=== PATIENT | male | born 1995 | race Two or more races ===

== ENCOUNTER 2018-06-28 16:24 | Emergency (ER) | payer OTHER ==
--- NOTE | 2018-06-28 16:30 | EDPHY ---
H & P Time Seen by Provider: 06/28/18 16:29 HPI/ROS: CHIEF COMPLAINT: [ ] HISTORY OF PRESENT ILLNESS: [Need 4: Location, Duration, Severity, Quality, Context, Timing Modifying Factors, Associated S&S] REVIEW OF SYSTEMS: A comprehensive 10 point review of systems is otherwise negative aside from elements mentioned in the history of present illness. Source: Patient Exam Limitations: No limitations - Physical Exam Exam: General Appearance: [Alert, no distress] Eyes: [Pupils equal and round no pallor or injection] ENT, Mouth: [Mucous membranes moist] Respiratory: [There are no retractions, lungs are clear to auscultation] Cardiovascular: [Regular rate and rhythm] Gastrointestinal: [Abdomen is soft and nontender, no masses, bowel sounds normal] Neurological: [A&O, normal motor function, normal sensory exam, normal cranial nerves] Skin: [Warm and dry, no rashes] Musculoskeletal: [Neck is supple nontender] Extremities: [symmetrical, full range of motion] Psychiatric: [Patient is oriented X 3, there is no agitation] Departure - Departure Referrals: NONE *PRIMARY CARE P,. [Primary Care Provider] - As per Instructions
[2018-06-28 16:58] VITALS: BP 136/87
--- NOTE | 2018-06-28 17:26 | EDPHY ---
ED Progress Note Narrative: The patient decided to leave without being seen. He was not evaluated by the physician. He refused a medical screening exam. Patient was a competent decision maker.
== END 2018-06-28 17:28 | disposition left against medical advice (07) ==
DX: R07.81 Pleurodynia (principal)
CPT/HCPCS: 82435-PO; 82565-PO; 82947-PO; 84132-PO; 84295-PO; 84520-PO; 85014-PO

== ENCOUNTER 2018-06-29 17:29 | Emergency (ER) | payer OTHER ==
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
[2018-06-29] MEDS ORDERED: IOPAMIDOL (ISOVUE 370) 100 ML BTL IV ONE (19:03)
[2018-06-29 19:53] VITALS: BP 129/87
== END 2018-06-29 19:52 | disposition home or self-care (01) ==
DX: R07.89 Other chest pain (principal); R79.1 Abnormal coagulation profile
CPT/HCPCS: Q9967